=== PATIENT | female | born 1940 | race Asian ===

== ENCOUNTER 2016-03-22 08:15 | Inpatient (IN) | payer MEDICARE, OTHER ==
[~2016-03-22] VITALS: Ht 152.4 cm; Wt 43.2 kg
[2016-03-22] MEDS ORDERED: GLUCAGON 1 MG VIAL IM PRN (13:10)
[2016-03-22] MEDS ORDERED: SALINE FLUSH 10 ML FLUSH PRN (13:10)
[2016-03-22] MEDS ORDERED: DEXTROSE 50% SYRINGE 50 ML IV PRN (13:10)
[2016-03-22] MEDS ORDERED: LORAZEPAM 2 MG/ML VIAL IV PRN (13:10)
[2016-03-22] MEDS ORDERED: CEFTRIAXONE 1 GM VIAL ONE (13:20)
[2016-03-22] MEDS ORDERED: SODIUM CHLORIDE 0.9% 100 ML IV ONE (13:21)
[2016-03-22 15:44] VITALS: BP_SYST 205; BP_SYST 208; RESP 16; TEMP 98.4
[2016-03-22 15:45] VITALS: Ht 152.4 cm; Wt 43.2 kg
[2016-03-22] MEDS ORDERED: KCL CR 20 MEQ TAB PO ONE (16:15)
[2016-03-22] MEDS: Ziprasidone 20 MG CAP PO SCH (17:31)
[2016-03-22] MEDS: LISINOPRIL 5 MG TAB PO SCH (17:31)
[2016-03-22 19:51] VITALS: BP_SYST 169; RESP 16; TEMP 98.3
[2016-03-22] MEDS: SALINE FLUSH 10 ML FLUSH SCH (20:59)
[2016-03-22] MEDS: hydrOXYzine 10 MG TAB PO SCH (20:59)
[2016-03-22] MEDS: HYDROCORT 2.5% CR 30 GM TOPICAL SCH (21:01)
[2016-03-22] MEDS: AMMONIUM LACTATE 5% TOPICAL SCH (21:02)
[2016-03-22 23:27] VITALS: BP_SYST 147; RESP 18; TEMP 98
[2016-03-23] VITALS (8 sets, daily range): BP systolic 160–217; RESP 16–18; TEMP 97.7–99.5
[2016-03-23] MEDS: SODIUM CHLORIDE 0.9% FLUSH BAG 500 ML IV SCH (06:36)
[2016-03-23] MEDS: LISINOPRIL 5 MG TAB PO SCH (09:12)
[2016-03-23] MEDS: hydrOXYzine 10 MG TAB PO SCH ×3 (09:12→20:05)
[2016-03-23] MEDS: Ziprasidone 20 MG CAP PO SCH (09:12)
[2016-03-23] MEDS: CEFTRIAXONE 1 GM in SODIUM CHLORIDE 0.9% 50 ML IV SCH (09:13)
[2016-03-23] MEDS: SALINE FLUSH 10 ML FLUSH SCH ×2 (09:14→20:05)
[2016-03-23] MEDS: HYDROCORT 2.5% CR 30 GM TOPICAL SCH ×2 (09:14→21:07)
[2016-03-23] MEDS: ENOXAPARIN 30 MG/0.3 ML SYR SUBQ SCH (09:14)
[2016-03-23] MEDS: AMMONIUM LACTATE 5% TOPICAL SCH ×2 (09:15→21:07)
[2016-03-23] MEDS: Senna/DSS 50/8.6 MG TAB PO SCH (12:37)
[2016-03-23] MEDS: Furosemide 20 MG TAB PO SCH (12:37)
[2016-03-23] MEDS: METFORMIN 500 MG TAB PO SCH ×2 (12:37→20:05)
[2016-03-24 03:15] VITALS: BP_SYST 178; RESP 16; TEMP 98.1
[2016-03-24] MEDS: SODIUM CHLORIDE 0.9% FLUSH BAG 500 ML IV SCH (06:32)
[2016-03-24 08:50] VITALS: BP_SYST 173; RESP 16; TEMP 97.9
[2016-03-24] MEDS: METFORMIN 500 MG TAB PO SCH ×2 (08:57→20:44)
[2016-03-24] MEDS: Furosemide 20 MG TAB PO SCH (08:57)
[2016-03-24] MEDS: Ziprasidone 20 MG CAP PO SCH (08:57)
[2016-03-24] MEDS: hydrOXYzine 10 MG TAB PO SCH ×3 (08:57→20:42)
[2016-03-24] MEDS: LISINOPRIL 5 MG TAB PO SCH (08:57)
[2016-03-24] MEDS: ENOXAPARIN 30 MG/0.3 ML SYR SUBQ SCH (08:59)
[2016-03-24] MEDS: HYDROCORT 2.5% CR 30 GM TOPICAL SCH ×2 (09:00→20:39)
[2016-03-24] MEDS: CEFTRIAXONE 1 GM in SODIUM CHLORIDE 0.9% 50 ML IV SCH (09:01)
[2016-03-24] MEDS: Senna/DSS 50/8.6 MG TAB PO SCH (09:01)
[2016-03-24] MEDS: AMMONIUM LACTATE 5% TOPICAL SCH ×2 (09:02→20:39)
[2016-03-24] MEDS: SALINE FLUSH 10 ML FLUSH SCH ×2 (09:35→20:00)
[2016-03-24 11:13] VITALS: BP_SYST 174; RESP 16; TEMP 98.1
[2016-03-24 15:32] VITALS: BP_SYST 125; RESP 16; TEMP 101
[2016-03-24 19:23] VITALS: BP_SYST 152; RESP 18; TEMP 98.5
[2016-03-24 23:37] VITALS: BP_SYST 151; RESP 18; TEMP 97.6
[2016-03-25] VITALS (9 sets, daily range): BP systolic 164–185; RESP 16–18; TEMP 97.5–98.9
[2016-03-25] MEDS: SODIUM CHLORIDE 0.9% FLUSH BAG 500 ML IV SCH (05:24)
[2016-03-25] MEDS: SALINE FLUSH 10 ML FLUSH SCH ×2 (08:22→20:34)
[2016-03-25] MEDS: METFORMIN 500 MG TAB PO SCH ×2 (08:23→20:34)
[2016-03-25] MEDS: CEFTRIAXONE 1 GM in SODIUM CHLORIDE 0.9% 50 ML IV SCH (08:23)
[2016-03-25] MEDS: LISINOPRIL 5 MG TAB PO SCH (08:23)
[2016-03-25] MEDS: hydrOXYzine 10 MG TAB PO SCH ×3 (08:23→20:34)
[2016-03-25] MEDS: Senna/DSS 50/8.6 MG TAB PO SCH (08:23)
[2016-03-25] MEDS: Furosemide 20 MG TAB PO SCH (08:23)
[2016-03-25] MEDS: ENOXAPARIN 30 MG/0.3 ML SYR SUBQ SCH (08:24)
[2016-03-25] MEDS: AMMONIUM LACTATE 5% TOPICAL SCH ×2 (08:25→20:36)
[2016-03-25] MEDS: HYDROCORT 2.5% CR 30 GM TOPICAL SCH ×2 (08:25→20:35)
[2016-03-25] MEDS ORDERED: LEVOFLOXACIN 500 MG TAB PO SCH (10:45)
[2016-03-25] MEDS: CEPHALEXIN 250 MG CAP PO SCH ×2 (16:37→20:34)
[2016-03-26] VITALS (9 sets, daily range): BP systolic 142–175; RESP 16–20; TEMP 97.2–98.6
[2016-03-26] MEDS: SODIUM CHLORIDE 0.9% FLUSH BAG 500 ML IV SCH (06:00)
[2016-03-26] MEDS: SALINE FLUSH 10 ML FLUSH SCH ×2 (08:00→20:42)
[2016-03-26] MEDS: HYDROCORT 2.5% CR 30 GM TOPICAL SCH ×2 (08:20→20:42)
[2016-03-26] MEDS: AMMONIUM LACTATE 5% TOPICAL SCH ×2 (08:21→20:42)
[2016-03-26] MEDS: ENOXAPARIN 30 MG/0.3 ML SYR SUBQ SCH (08:25)
[2016-03-26] MEDS: CEPHALEXIN 250 MG CAP PO SCH ×2 (08:25→20:40)
[2016-03-26] MEDS: METFORMIN 500 MG TAB PO SCH ×2 (08:25→20:41)
[2016-03-26] MEDS: Senna/DSS 50/8.6 MG TAB PO SCH (08:25)
[2016-03-26] MEDS: Furosemide 20 MG TAB PO SCH (08:25)
[2016-03-26] MEDS: hydrOXYzine 10 MG TAB PO SCH ×3 (08:25→20:41)
[2016-03-26] MEDS: LISINOPRIL 5 MG TAB PO SCH (08:25)
[2016-03-27 03:06] VITALS: BP_SYST 165; RESP 20; TEMP 98.5
[2016-03-27] MEDS: SODIUM CHLORIDE 0.9% FLUSH BAG 500 ML IV SCH (05:20)
[2016-03-27] MEDS: SALINE FLUSH 10 ML FLUSH SCH ×2 (08:00→21:22)
[2016-03-27] MEDS: Furosemide 20 MG TAB PO SCH (08:15)
[2016-03-27] MEDS: CEPHALEXIN 250 MG CAP PO SCH ×2 (08:15→21:00)
[2016-03-27] MEDS: hydrOXYzine 10 MG TAB PO SCH ×3 (08:15→21:00)
[2016-03-27] MEDS: METFORMIN 500 MG TAB PO SCH ×2 (08:15→21:00)
[2016-03-27] MEDS: ENOXAPARIN 30 MG/0.3 ML SYR SUBQ SCH (08:16)
[2016-03-27] MEDS: AMMONIUM LACTATE 5% TOPICAL SCH ×2 (08:16→21:00)
[2016-03-27] MEDS: Senna/DSS 50/8.6 MG TAB PO SCH (08:16)
[2016-03-27] MEDS: HYDROCORT 2.5% CR 30 GM TOPICAL SCH ×2 (08:16→21:00)
[2016-03-27] MEDS: LISINOPRIL 5 MG TAB PO SCH (08:16)
[2016-03-27 08:22] VITALS: BP_SYST 156; RESP 18; TEMP 98.7
[2016-03-27 11:11] VITALS: BP_SYST 137; RESP 16; TEMP 98.2
[2016-03-27 15:32] VITALS: BP_SYST 161; RESP 16; TEMP 98.4
[2016-03-27 19:31] VITALS: BP_SYST 160; RESP 18; TEMP 98.2
[2016-03-27 23:22] VITALS: BP_SYST 176; RESP 18; TEMP 98
[2016-03-28] MEDS: SODIUM CHLORIDE 0.9% FLUSH BAG 500 ML IV SCH (00:41)
[2016-03-28 04:03] VITALS: BP_SYST 163; RESP 18; TEMP 98
[2016-03-28 07:07] VITALS: BP_SYST 145; RESP 20; TEMP 98.6
[2016-03-28] MEDS: SALINE FLUSH 10 ML FLUSH SCH ×2 (08:00→21:37)
[2016-03-28] MEDS: METFORMIN 500 MG TAB PO SCH ×2 (08:01→21:36)
[2016-03-28] MEDS: CEPHALEXIN 250 MG CAP PO SCH ×2 (08:02→21:36)
[2016-03-28] MEDS: hydrOXYzine 10 MG TAB PO SCH ×3 (08:02→21:36)
[2016-03-28] MEDS: LISINOPRIL 5 MG TAB PO SCH (08:02)
[2016-03-28] MEDS: Senna/DSS 50/8.6 MG TAB PO SCH (08:02)
[2016-03-28] MEDS: Furosemide 20 MG TAB PO SCH (08:03)
[2016-03-28] MEDS: ENOXAPARIN 30 MG/0.3 ML SYR SUBQ SCH (08:06)
[2016-03-28] MEDS: HYDROCORT 2.5% CR 30 GM TOPICAL SCH ×2 (08:07→21:38)
[2016-03-28] MEDS: AMMONIUM LACTATE 5% TOPICAL SCH ×2 (08:07→21:38)
[2016-03-28 11:30] VITALS: BP_SYST 125; RESP 20; TEMP 98.4
[2016-03-28] MEDS ORDERED: MISSING DOSE XX ONE (13:40)
[2016-03-28] MEDS: SITAGLIPTIN 25 MG TAB PO SCH (13:55)
[2016-03-28 17:43] VITALS: BP_SYST 154; RESP 20; TEMP 98.7
[2016-03-28 19:38] VITALS: BP_SYST 115; RESP 16; TEMP 97.8
[2016-03-28 22:59] VITALS: BP_SYST 146; RESP 16; TEMP 98
[2016-03-29 03:05] VITALS: BP_SYST 140; RESP 16; TEMP 98
[2016-03-29] MEDS: SODIUM CHLORIDE 0.9% FLUSH BAG 500 ML IV SCH (06:00)
[2016-03-29 07:56] VITALS: BP_SYST 145; RESP 16; TEMP 98.2
[2016-03-29] MEDS: SALINE FLUSH 10 ML FLUSH SCH ×2 (08:00→21:30)
[2016-03-29] MEDS: hydrOXYzine 10 MG TAB PO SCH ×3 (08:09→21:30)
[2016-03-29] MEDS: Furosemide 20 MG TAB PO SCH (08:09)
[2016-03-29] MEDS: METFORMIN 500 MG TAB PO SCH ×2 (08:09→21:30)
[2016-03-29] MEDS: CEPHALEXIN 250 MG CAP PO SCH ×2 (08:09→21:29)
[2016-03-29] MEDS: ENOXAPARIN 30 MG/0.3 ML SYR SUBQ SCH (08:10)
[2016-03-29] MEDS: SITAGLIPTIN 25 MG TAB PO SCH (08:10)
[2016-03-29] MEDS: LISINOPRIL 5 MG TAB PO SCH (08:10)
[2016-03-29] MEDS: Senna/DSS 50/8.6 MG TAB PO SCH (08:10)
[2016-03-29] MEDS: HYDROCORT 2.5% CR 30 GM TOPICAL SCH ×2 (08:11→21:31)
[2016-03-29] MEDS: AMMONIUM LACTATE 5% TOPICAL SCH ×2 (08:11→21:31)
[2016-03-29 11:34] VITALS: BP_SYST 139; RESP 16; TEMP 98.3
[2016-03-29 16:10] VITALS: BP_SYST 154; RESP 16; TEMP 98.7
[2016-03-29 19:21] VITALS: BP_SYST 147; RESP 18; TEMP 98.5
[2016-03-29 22:57] VITALS: BP_SYST 146; RESP 18; TEMP 98
[2016-03-30 03:10] VITALS: BP_SYST 139; RESP 16; TEMP 98.3
[2016-03-30] MEDS: SODIUM CHLORIDE 0.9% FLUSH BAG 500 ML IV SCH (05:29)
[2016-03-30 08:00] VITALS: BP_SYST 131; RESP 18; TEMP 97.8
[2016-03-30] MEDS: SALINE FLUSH 10 ML FLUSH SCH ×2 (08:00→20:00)
[2016-03-30] MEDS: hydrOXYzine 10 MG TAB PO SCH ×3 (08:48→20:06)
[2016-03-30] MEDS: Senna/DSS 50/8.6 MG TAB PO SCH (08:48)
[2016-03-30] MEDS: CEPHALEXIN 250 MG CAP PO SCH ×2 (08:48→20:06)
[2016-03-30] MEDS: LISINOPRIL 5 MG TAB PO SCH (08:48)
[2016-03-30] MEDS: Furosemide 20 MG TAB PO SCH (08:48)
[2016-03-30] MEDS: ENOXAPARIN 30 MG/0.3 ML SYR SUBQ SCH (08:48)
[2016-03-30] MEDS: HYDROCORT 2.5% CR 30 GM TOPICAL SCH ×2 (08:49→20:06)
[2016-03-30] MEDS: SITAGLIPTIN 25 MG TAB PO SCH (08:49)
[2016-03-30] MEDS: METFORMIN 500 MG TAB PO SCH ×2 (08:49→20:06)
[2016-03-30] MEDS: AMMONIUM LACTATE 5% TOPICAL SCH ×2 (08:50→20:06)
[2016-03-30 11:29] VITALS: BP_SYST 120; RESP 18; TEMP 99.8
[2016-03-30 15:57] VITALS: BP_SYST 114; RESP 18; TEMP 98.3
[2016-03-30 19:00] VITALS: BP_SYST 105; RESP 16; TEMP 98.2
[2016-03-30 23:23] VITALS: BP_SYST 126; RESP 16; TEMP 97.6
[2016-03-31 03:00] VITALS: BP_SYST 120; RESP 16; TEMP 97.3
[2016-03-31] MEDS: SODIUM CHLORIDE 0.9% FLUSH BAG 500 ML IV SCH (05:23)
[2016-03-31] MEDS ORDERED: MISSING DOSE XX ONE (06:00)
[2016-03-31 07:16] VITALS: BP_SYST 110; RESP 18; TEMP 99.1
[2016-03-31] MEDS: SALINE FLUSH 10 ML FLUSH SCH ×2 (08:25→20:00)
[2016-03-31] MEDS: Senna/DSS 50/8.6 MG TAB PO SCH (08:26)
[2016-03-31] MEDS: ENOXAPARIN 30 MG/0.3 ML SYR SUBQ SCH (08:26)
[2016-03-31] MEDS: Furosemide 20 MG TAB PO SCH (08:26)
[2016-03-31] MEDS: hydrOXYzine 10 MG TAB PO SCH ×3 (08:26→20:39)
[2016-03-31] MEDS: LISINOPRIL 5 MG TAB PO SCH (08:26)
[2016-03-31] MEDS: CEPHALEXIN 250 MG CAP PO SCH ×2 (08:26→20:39)
[2016-03-31] MEDS: METFORMIN 500 MG TAB PO SCH ×2 (08:27→20:39)
[2016-03-31] MEDS: SITAGLIPTIN 25 MG TAB PO SCH (08:27)
[2016-03-31] MEDS: AMMONIUM LACTATE 5% TOPICAL SCH ×3 (08:27→20:40)
[2016-03-31] MEDS: HYDROCORT 2.5% CR 30 GM TOPICAL SCH ×2 (08:27→20:40)
[2016-03-31 11:47] VITALS: BP_SYST 132; RESP 18; TEMP 98.6
[2016-03-31 15:02] VITALS: BP_SYST 131; RESP 18; TEMP 98.3
[2016-03-31 20:59] VITALS: BP_SYST 123; TEMP 98.4
[2016-03-31 21:00] VITALS: RESP 16
[2016-04-01] VITALS (7 sets, daily range): BP systolic 97–154; RESP 16–20; TEMP 97.7–98.9
[2016-04-01] MEDS: SODIUM CHLORIDE 0.9% FLUSH BAG 500 ML IV SCH (06:00)
[2016-04-01] MEDS: SALINE FLUSH 10 ML FLUSH SCH ×2 (08:00→19:53)
[2016-04-01] MEDS: AMMONIUM LACTATE 5% TOPICAL SCH ×2 (09:00→20:21)
[2016-04-01] MEDS: ENOXAPARIN 30 MG/0.3 ML SYR SUBQ SCH ×2 (09:00→10:11)
[2016-04-01] MEDS: METFORMIN 500 MG TAB PO SCH ×2 (10:09→20:16)
[2016-04-01] MEDS: Senna/DSS 50/8.6 MG TAB PO SCH (10:10)
[2016-04-01] MEDS: CEPHALEXIN 250 MG CAP PO SCH (10:10)
[2016-04-01] MEDS: LISINOPRIL 5 MG TAB PO SCH (10:10)
[2016-04-01] MEDS: hydrOXYzine 10 MG TAB PO SCH ×3 (10:10→20:16)
[2016-04-01] MEDS: SITAGLIPTIN 25 MG TAB PO SCH (10:10)
[2016-04-01] MEDS: Furosemide 20 MG TAB PO SCH (10:11)
[2016-04-01] MEDS: HYDROCORT 2.5% CR 30 GM TOPICAL SCH ×2 (10:12→20:21)
[2016-04-02] MEDS: SODIUM CHLORIDE 0.9% FLUSH BAG 500 ML IV SCH (00:31)
[2016-04-02 03:40] VITALS: BP_SYST 122; RESP 18
[2016-04-02 07:17] VITALS: BP_SYST 120; RESP 18; TEMP 98.3
[2016-04-02] MEDS: SALINE FLUSH 10 ML FLUSH SCH ×2 (08:00→20:00)
[2016-04-02] MEDS: AMMONIUM LACTATE 5% TOPICAL SCH ×2 (08:01→21:31)
[2016-04-02] MEDS: HYDROCORT 2.5% CR 30 GM TOPICAL SCH ×2 (08:01→21:31)
[2016-04-02] MEDS: hydrOXYzine 10 MG TAB PO SCH ×3 (08:03→21:00)
[2016-04-02] MEDS: Senna/DSS 50/8.6 MG TAB PO SCH (08:03)
[2016-04-02] MEDS: METFORMIN 500 MG TAB PO SCH ×2 (08:03→21:00)
[2016-04-02] MEDS: ENOXAPARIN 30 MG/0.3 ML SYR SUBQ SCH (08:04)
[2016-04-02] MEDS: SITAGLIPTIN 25 MG TAB PO SCH (08:04)
[2016-04-02] MEDS: LISINOPRIL 5 MG TAB PO SCH (08:04)
[2016-04-02] MEDS: Furosemide 20 MG TAB PO SCH (08:04)
[2016-04-02 10:53] VITALS: BP_SYST 131; RESP 18; TEMP 98.3
[2016-04-02 14:58] VITALS: BP_SYST 109; RESP 18; TEMP 98.4
[2016-04-02 19:05] VITALS: BP_SYST 132; RESP 16; TEMP 97.6
[2016-04-02 23:16] VITALS: BP_SYST 126; RESP 18; TEMP 97.9
[2016-04-03] MEDS: METFORMIN 500 MG TAB PO SCH ×3 (01:16→20:33)
[2016-04-03] MEDS: hydrOXYzine 10 MG TAB PO SCH ×4 (01:17→20:33)
[2016-04-03 03:09] VITALS: BP_SYST 125; RESP 16; TEMP 97.5
[2016-04-03] MEDS: SODIUM CHLORIDE 0.9% FLUSH BAG 500 ML IV SCH (05:46)
[2016-04-03 07:37] VITALS: BP_SYST 107; TEMP 97.8
[2016-04-03 07:38] VITALS: RESP 16
[2016-04-03] MEDS: SALINE FLUSH 10 ML FLUSH SCH ×2 (07:59→20:00)
[2016-04-03] MEDS: HYDROCORT 2.5% CR 30 GM TOPICAL SCH ×2 (08:00→20:35)
[2016-04-03] MEDS: AMMONIUM LACTATE 5% TOPICAL SCH ×2 (08:00→20:35)
[2016-04-03] MEDS: ENOXAPARIN 30 MG/0.3 ML SYR SUBQ SCH (08:01)
[2016-04-03] MEDS: SITAGLIPTIN 25 MG TAB PO SCH (08:01)
[2016-04-03] MEDS: Furosemide 20 MG TAB PO SCH (08:02)
[2016-04-03] MEDS: LISINOPRIL 5 MG TAB PO SCH (08:03)
[2016-04-03] MEDS: Senna/DSS 50/8.6 MG TAB PO SCH (08:04)
[2016-04-03 15:22] VITALS: BP_SYST 109; RESP 18; TEMP 97.8
[2016-04-03 19:24] VITALS: BP_SYST 126
[2016-04-03 19:25] VITALS: RESP 18; TEMP 97.5
[2016-04-04 04:53] VITALS: BP_SYST 115; RESP 10; TEMP 98.2
[2016-04-04] MEDS: SODIUM CHLORIDE 0.9% FLUSH BAG 500 ML IV SCH (05:59)
[2016-04-04] MEDS: SALINE FLUSH 10 ML FLUSH SCH ×2 (07:51→20:00)
[2016-04-04] MEDS: hydrOXYzine 10 MG TAB PO SCH (07:52)
[2016-04-04] MEDS: SITAGLIPTIN 25 MG TAB PO SCH (07:53)
[2016-04-04] MEDS: METFORMIN 500 MG TAB PO SCH ×2 (07:53→20:46)
[2016-04-04] MEDS: Senna/DSS 50/8.6 MG TAB PO SCH (07:53)
[2016-04-04] MEDS: Furosemide 20 MG TAB PO SCH (07:54)
[2016-04-04] MEDS: LISINOPRIL 5 MG TAB PO SCH (07:54)
[2016-04-04] MEDS: ENOXAPARIN 30 MG/0.3 ML SYR SUBQ SCH (07:55)
[2016-04-04 08:05] VITALS: BP_SYST 115; RESP 16; TEMP 97.8
[2016-04-04] MEDS ORDERED: MISSING DOSE XX ONE (08:05)
[2016-04-04] MEDS: AMMONIUM LACTATE 5% TOPICAL SCH ×2 (08:56→20:52)
[2016-04-04] MEDS: HYDROCORT 2.5% CR 30 GM TOPICAL SCH ×2 (08:56→20:46)
[2016-04-04 11:23] VITALS: BP_SYST 108; RESP 16; TEMP 98.3
[2016-04-04 15:25] VITALS: BP_SYST 112; RESP 18; TEMP 97.9
[2016-04-04 19:28] VITALS: BP_SYST 117; RESP 16; TEMP 97.3
[2016-04-04 22:58] VITALS: BP_SYST 121; RESP 18; TEMP 97.4
[2016-04-04] MEDS: hydrOXYzine 10 MG TAB PO PRN (23:04)
[2016-04-05 03:09] VITALS: BP_SYST 110; RESP 18; TEMP 97.8
[2016-04-05] MEDS: SODIUM CHLORIDE 0.9% FLUSH BAG 500 ML IV SCH (05:58)
[2016-04-05 07:26] VITALS: BP_SYST 115; RESP 20; TEMP 98.7
[2016-04-05] MEDS: SALINE FLUSH 10 ML FLUSH SCH ×2 (07:27→20:00)
[2016-04-05] MEDS: HYDROCORT 2.5% CR 30 GM TOPICAL SCH ×2 (08:07→20:36)
[2016-04-05] MEDS: LISINOPRIL 5 MG TAB PO SCH (08:07)
[2016-04-05] MEDS: SITAGLIPTIN 25 MG TAB PO SCH (08:07)
[2016-04-05] MEDS: hydrOXYzine 10 MG TAB PO PRN ×2 (08:07→20:44)
[2016-04-05] MEDS: Furosemide 20 MG TAB PO SCH (08:07)
[2016-04-05] MEDS: AMMONIUM LACTATE 5% TOPICAL SCH ×2 (08:08→20:36)
[2016-04-05] MEDS: ENOXAPARIN 30 MG/0.3 ML SYR SUBQ SCH (08:08)
[2016-04-05] MEDS: METFORMIN 500 MG TAB PO SCH ×2 (08:08→20:35)
[2016-04-05 11:48] VITALS: BP_SYST 94; RESP 18; TEMP 97.9
[2016-04-05 15:06] VITALS: BP_SYST 97; RESP 14; TEMP 98.4
[2016-04-05] MEDS ORDERED: MISSING DOSE XX ONE (20:35)
[2016-04-05 20:37] VITALS: BP_SYST 113; RESP 18; TEMP 98.2
[2016-04-06] MEDS: SODIUM CHLORIDE 0.9% FLUSH BAG 500 ML IV SCH ×2 (01:42→23:58)
[2016-04-06 01:49] VITALS: BP_SYST 117; RESP 16; TEMP 97.3
[2016-04-06] MEDS: SALINE FLUSH 10 ML FLUSH SCH ×2 (08:00→22:19)
[2016-04-06] MEDS: METFORMIN 500 MG TAB PO SCH ×2 (08:04→23:56)
[2016-04-06] MEDS: Furosemide 20 MG TAB PO SCH (08:05)
[2016-04-06] MEDS: SITAGLIPTIN 25 MG TAB PO SCH (08:05)
[2016-04-06] MEDS: HYDROCORT 2.5% CR 30 GM TOPICAL SCH ×2 (08:06→21:00)
[2016-04-06] MEDS: ENOXAPARIN 30 MG/0.3 ML SYR SUBQ SCH (08:06)
[2016-04-06] MEDS: AMMONIUM LACTATE 5% TOPICAL SCH ×2 (08:07→21:00)
[2016-04-06] MEDS: LISINOPRIL 5 MG TAB PO SCH (08:07)
[2016-04-06 08:32] VITALS: BP_SYST 112; RESP 16; TEMP 98.2
[2016-04-06 11:25] VITALS: BP_SYST 128; RESP 16; TEMP 98
[2016-04-06 15:38] VITALS: BP_SYST 95; RESP 16; TEMP 97.8
[2016-04-06 18:55] VITALS: BP_SYST 99; RESP 16; TEMP 98.7
[2016-04-07] VITALS: BP_SYST 105; RESP 18; TEMP 98.3
[2016-04-07 07:26] VITALS: BP_SYST 129; RESP 18; TEMP 98.4
[2016-04-07] MEDS: SALINE FLUSH 10 ML FLUSH SCH ×2 (08:00→19:30)
[2016-04-07] MEDS: ENOXAPARIN 30 MG/0.3 ML SYR SUBQ SCH (09:25)
[2016-04-07] MEDS: METFORMIN 500 MG TAB PO SCH ×2 (09:25→20:06)
[2016-04-07] MEDS: LISINOPRIL 5 MG TAB PO SCH (09:26)
[2016-04-07] MEDS: AMMONIUM LACTATE 5% TOPICAL SCH ×2 (09:26→20:06)
[2016-04-07] MEDS: Furosemide 20 MG TAB PO SCH (09:26)
[2016-04-07] MEDS: HYDROCORT 2.5% CR 30 GM TOPICAL SCH ×2 (09:26→20:06)
[2016-04-07] MEDS: SITAGLIPTIN 25 MG TAB PO SCH (09:26)
[2016-04-07 12:01] VITALS: BP_SYST 143; RESP 18; TEMP 98
[2016-04-07 16:28] VITALS: BP_SYST 125; RESP 20; TEMP 98
[2016-04-07 20:02] VITALS: BP_SYST 125; RESP 20; TEMP 98.9
[2016-04-07] MEDS: TRAZODONE 50 MG TAB PO SCH (20:06)
[2016-04-07 23:29] VITALS: BP_SYST 94; RESP 20; TEMP 97
[2016-04-08 04:45] VITALS: BP_SYST 90; RESP 18; TEMP 97.8
[2016-04-08] MEDS: SODIUM CHLORIDE 0.9% FLUSH BAG 500 ML IV SCH (05:58)
[2016-04-08] MEDS: SALINE FLUSH 10 ML FLUSH SCH ×2 (08:00→20:00)
[2016-04-08 08:27] VITALS: BP_SYST 114; RESP 16; TEMP 98.3
[2016-04-08] MEDS: Furosemide 20 MG TAB PO SCH (09:21)
[2016-04-08] MEDS: METFORMIN 500 MG TAB PO SCH ×3 (09:21→21:00)
[2016-04-08] MEDS: LISINOPRIL 5 MG TAB PO SCH (09:21)
[2016-04-08] MEDS: SITAGLIPTIN 25 MG TAB PO SCH (09:21)
[2016-04-08] MEDS: AMMONIUM LACTATE 5% TOPICAL SCH ×2 (09:22→20:41)
[2016-04-08] MEDS: HYDROCORT 2.5% CR 30 GM TOPICAL SCH ×2 (09:22→20:41)
[2016-04-08] MEDS: ENOXAPARIN 30 MG/0.3 ML SYR SUBQ SCH (09:23)
[2016-04-08 12:42] VITALS: BP_SYST 114; RESP 16; TEMP 98.1
[2016-04-08 15:48] VITALS: BP_SYST 117; RESP 16; TEMP 99.6
[2016-04-08 19:13] VITALS: BP_SYST 86; RESP 18; TEMP 97.2
[2016-04-08] MEDS: TRAZODONE 50 MG TAB PO SCH (20:40)
[2016-04-08 23:01] VITALS: BP_SYST 85; RESP 16; TEMP 97.4
[2016-04-08] MEDS: ACETAMINOPHEN 325 MG TAB PO PRN (23:01)
[2016-04-09 03:40] VITALS: BP_SYST 94; RESP 18; TEMP 97.6
[2016-04-09] MEDS: SODIUM CHLORIDE 0.9% FLUSH BAG 500 ML IV SCH (05:09)
[2016-04-09] MEDS: SALINE FLUSH 10 ML FLUSH SCH ×2 (08:00→20:00)
[2016-04-09 08:16] VITALS: BP_SYST 104; RESP 18; TEMP 97.5
[2016-04-09] MEDS: LISINOPRIL 5 MG TAB PO SCH (09:00)
[2016-04-09] MEDS: Furosemide 20 MG TAB PO SCH (09:10)
[2016-04-09] MEDS: SITAGLIPTIN 25 MG TAB PO SCH (09:11)
[2016-04-09] MEDS: METFORMIN 500 MG TAB PO SCH ×2 (09:11→21:20)
[2016-04-09] MEDS: ENOXAPARIN 30 MG/0.3 ML SYR SUBQ SCH (09:12)
[2016-04-09] MEDS: HYDROCORT 2.5% CR 30 GM TOPICAL SCH ×3 (09:13→22:55)
[2016-04-09] MEDS: AMMONIUM LACTATE 5% TOPICAL SCH ×3 (09:13→22:54)
[2016-04-09] MEDS ORDERED: TUBERCULIN PPD 5 UNIT SYR ID.VACC ONE (09:50)
[2016-04-09 12:03] VITALS: BP_SYST 103; RESP 16; TEMP 98.6
[2016-04-09 15:36] VITALS: BP_SYST 133; RESP 16; TEMP 97.9
[2016-04-09 19:53] VITALS: BP_SYST 115; RESP 16; TEMP 97.3
[2016-04-09] MEDS: TRAZODONE 50 MG TAB PO SCH (21:21)
[2016-04-09] MEDS: ACETAMINOPHEN 325 MG TAB PO PRN (21:22)
[2016-04-09] MEDS ORDERED: MISSING DOSE XX ONE (22:50)
[2016-04-09] MEDS: hydrOXYzine 10 MG TAB PO PRN (23:00)
[2016-04-09 23:40] VITALS: BP_SYST 106; RESP 16; TEMP 97.7
[2016-04-10] VITALS (7 sets, daily range): BP systolic 93–121; RESP 16–22; TEMP 97.2–97.8
[2016-04-10] MEDS: SODIUM CHLORIDE 0.9% FLUSH BAG 500 ML IV SCH (06:00)
[2016-04-10] MEDS: SALINE FLUSH 10 ML FLUSH SCH ×2 (07:28→20:00)
[2016-04-10] MEDS: SITAGLIPTIN 25 MG TAB PO SCH (08:43)
[2016-04-10] MEDS: METFORMIN 500 MG TAB PO SCH ×2 (08:43→20:29)
[2016-04-10] MEDS: Furosemide 20 MG TAB PO SCH (08:43)
[2016-04-10] MEDS: LISINOPRIL 5 MG TAB PO SCH (08:43)
[2016-04-10] MEDS: ENOXAPARIN 30 MG/0.3 ML SYR SUBQ SCH (08:44)
[2016-04-10] MEDS: HYDROCORT 2.5% CR 30 GM TOPICAL SCH ×2 (08:44→20:29)
[2016-04-10] MEDS: AMMONIUM LACTATE 5% TOPICAL SCH ×2 (08:44→20:29)
[2016-04-10] MEDS: hydrOXYzine 10 MG TAB PO PRN ×2 (08:46→22:10)
[2016-04-10] MEDS: TRAZODONE 50 MG TAB PO SCH (20:29)
[2016-04-10] MEDS ORDERED: MISSING DOSE XX ONE (21:45)
[2016-04-11] MEDS: SODIUM CHLORIDE 0.9% FLUSH BAG 500 ML IV SCH (06:00)
[2016-04-11 07:21] VITALS: BP_SYST 89; RESP 18
[2016-04-11] MEDS: HYDROCORT 2.5% CR 30 GM TOPICAL SCH ×2 (08:57→20:37)
[2016-04-11] MEDS: AMMONIUM LACTATE 5% TOPICAL SCH ×2 (08:57→20:37)
[2016-04-11] MEDS: METFORMIN 500 MG TAB PO SCH ×2 (08:58→20:37)
[2016-04-11] MEDS: ENOXAPARIN 30 MG/0.3 ML SYR SUBQ SCH (08:58)
[2016-04-11] MEDS: SITAGLIPTIN 25 MG TAB PO SCH (08:58)
[2016-04-11] MEDS: LISINOPRIL 5 MG TAB PO SCH (09:00)
[2016-04-11] MEDS: Furosemide 20 MG TAB PO SCH (09:00)
[2016-04-11] MEDS: SALINE FLUSH 10 ML FLUSH SCH ×2 (10:42→19:21)
[2016-04-11 11:49] VITALS: BP_SYST 109; RESP 20
[2016-04-11 15:18] VITALS: BP_SYST 119; RESP 20
[2016-04-11 19:26] VITALS: BP_SYST 113; TEMP 97.4
[2016-04-11 19:27] VITALS: RESP 20
[2016-04-11] MEDS: TRAZODONE 50 MG TAB PO SCH (20:37)
[2016-04-11] MEDS: hydrOXYzine 10 MG TAB PO PRN (20:41)
[2016-04-11] MEDS ORDERED: SKIN TEST: READ AND RECORD XX SCH (21:00)
[2016-04-12 04:32] VITALS: BP_SYST 99
[2016-04-12 04:33] VITALS: RESP 20
[2016-04-12] MEDS: SODIUM CHLORIDE 0.9% FLUSH BAG 500 ML IV SCH (05:01)
[2016-04-12 07:13] VITALS: BP_SYST 108; RESP 16
[2016-04-12] MEDS: METFORMIN 500 MG TAB PO SCH (09:13)
[2016-04-12] MEDS: SITAGLIPTIN 25 MG TAB PO SCH (09:13)
[2016-04-12] MEDS: ENOXAPARIN 30 MG/0.3 ML SYR SUBQ SCH (09:14)
[2016-04-12] MEDS: AMMONIUM LACTATE 5% TOPICAL SCH (09:15)
[2016-04-12] MEDS: HYDROCORT 2.5% CR 30 GM TOPICAL SCH (09:15)
[2016-04-12 10:40] VITALS: BP_SYST 108; RESP 16; TEMP 97.4
== END 2016-04-12 12:57 | DRG 689 ==
LOC: ENRESERVTM → ENRESERVDT → ER 08:15 → ENPENDDIS 13:08 → EMR 13:08 → 3NT 15:20 → 2NO 04-04 02:42
PROVIDERS: ADMIT Internal Medicine; ATTEND Internal Medicine
CPT/HCPCS: 36415; 70450; 71010; 80048; 80053; 81001; 82947; 83036; 83735; 83880; 84439; 84443; 85025; 85610; 85730; 86580; 87077; 87088; 87186; 93005; 93306; 96365; 99231; 99232; 99233; 99239